=== PATIENT | male | born 1980 | race Two or more races ===

== ENCOUNTER 2024-03-02 19:00 | Inpatient (IN) | payer OTHER ==
[~2024-03-02] VITALS: Ht 182.9 cm; Wt 66.7 kg
[2024-03-02] MEDS: SODIUM CHLORIDE 0.9% 1,000 ML IV ONE (20:03)
[2024-03-02] MEDS: InsuLIN REG 1unit/0.01ml Soln (100units/ml) IV ONE (20:09)
[2024-03-02 20:41] LABS: Basophils # (auto) 0 10 ^3/uL (0-0.2); Basophils % (auto) 0.1 % (0.0-2.0); Eosinophils # (auto) 0 10 ^3/uL (0-0.8); Hemoglobin 18.9 g/dL (13.5-17.5); Lymphocytes # (auto) 0.5 10 ^3/uL (0.4-5.4); Lymphocytes % (auto) 7.4 % (10.0-50.0); Mean Corpuscular Hemoglobin 28.7 pg (28.0-32.0); Mean Corpuscular Hgb Conc. 32.4 g/dL (32.0-36.0); Mean Corpuscular Volume 88.7 fL (80.0-100.0); Monocytes # (auto) 0.6 10 ^3/uL (0-1.3); Monocytes % (auto) 9.7 % (0.0-12.0); Neutrophils # (auto) 5.4 10 ^3/uL (1.6-8.6); Neutrophils % (auto) 82.8 % (37.0-80.0); Nucleated Red Blood Cells % 0.5 %; Red Blood Cells 6.59 10^6/uL (4.5-5.90); Red Cell Distribution Width 13.4 % (11.8-14.3); White Blood Cell 6.5 10^3/uL (4.4-10.8)
[2024-03-02 20:42] LABS: Hematocrit 58.5 % (41.0-53.0)
[2024-03-02 20:50] LABS: Base Excess -18.1 mmol/L (-2.0-2.0)
[2024-03-02 21:14] LABS: Alanine Aminotransferase 16 U/L (7-40); Albumin 5.4 g/dL (3.2-4.8); Alkaline Phosphatase 109 U/L (46-116); Anion Gap 23.00001 (5-15); Aspartate Aminotransferase 16 U/L (13-40); BUN/Creatinine Ratio 12.2 (10.0-20.0); Blood Urea Nitrogen 22 mg/dL (9-23); Calcium 10.9 mg/dL (8.7-10.4); Chloride 89 mmol/L (98-107); Potassium 4.6 mmol/L (3.5-5.1); Sodium 122 mmol/L (136-145)
[2024-03-02 21:15] LABS: Bilirubin, Total 0.7 mg/dL (0.2-1.0); Total Protein 8.9 g/dL (5.7-8.2)
[2024-03-02] MEDS ORDERED: DEXTROSE (50%) 50ML SYRG IV PRN ×2 (21:15→23:15)
[2024-03-02 21:25] LABS: Urine Bacteria None Seen /hpf (None Seen)
[2024-03-02 21:26] LABS: Lactic Acid w/Reflex 2.3 mmol/L (0.4-2.0)
[2024-03-02 21:27] LABS: Carbon Dioxide < 10 mmol/L (20-30); Glucose 412 mg/dL (74-106)
[2024-03-02] MEDS: SODIUM CHLORIDE 0.9% 2,000 ML IV ONE (21:36)
[2024-03-02 21:58] LABS: Urine Blood 1+ /uL (Negative); Urine Clarity Clear (Clear); Urine Color Light-Yellow (Yellow); Urine Mucus FEW (None Seen); Urine Protein, UAD 1+ (Negative); Urine Specific Gravity 1.027 (1.001-1.035); Urine Urobilinogen Normal (Negative); Urine WBC 1 /hpf (0 - 3)
[2024-03-02 22:00] LABS: Magnesium 2.1 mg/dL (1.6-2.6)
[2024-03-02 22:01] LABS: Phosphorus 3.8 mg/dL (2.4-5.1)
[2024-03-02 22:23] VITALS: PULSE 92; RESP 20; O2SAT 95
[2024-03-02] MEDS: INSULIN LANTUS (GLARGINE) 1 /0.01ml (100units/ml) SC ONE (22:34)
[2024-03-02] MEDS: ONDANSETRON HCL 4 MG/2 ML VIAL IV ONE (22:34)
[2024-03-02] MEDS: INSULIN DRIP 100 UNIT/100ML 100 ML IV SCH (22:35)
[2024-03-02] MEDS: ACCU-CHEK COMFORT CURVE STRIP VI SCH (22:36)
[2024-03-02] MEDS: MORPHINE SULFATE INJ 2 MG/ml SYRG IV ONE (22:36)
[2024-03-02] MEDS ORDERED: ONDANSETRON HCL 4 MG/2 ML VIAL IV PRN (23:15)
[2024-03-02] MEDS ORDERED: MORPHINE SULFATE INJ 2 MG/ml SYRG IV PRN (23:15)
[2024-03-02] MEDS ORDERED: NITROGLYCERIN 0.4 MG SL TAB SL PRN (23:15)
[2024-03-03 00:22] LABS: Rapid Influenza B Negative (Negative)
[2024-03-03 00:23] LABS: Rapid Influenza A Positive (Negative)
[2024-03-03 01:14] LABS: Chloride 101 mmol/L (98-107); Potassium 3.9 mmol/L (3.5-5.1)
[2024-03-03] MEDS: OSELTAMIVIR 75 MG CAP PO ONE (01:14)
[2024-03-03 01:15] LABS: Anion Gap 15 (5-15); Carbon Dioxide 11 mmol/L (20-30)
[2024-03-03 01:16] LABS: Calcium 9.1 mg/dL (8.7-10.4)
[2024-03-03 01:20] LABS: Blood Urea Nitrogen 11 mg/dL (9-23)
[2024-03-03 01:24] LABS: Glucose 231 mg/dL (74-106); Sodium 127 mmol/L (136-145)
[2024-03-03] MEDS: INSULIN DRIP 100 UNIT/100ML 100 ML IV SCH ×2 (02:05→04:44)
[2024-03-03] MEDS: SODIUM CHLORIDE 0.9% 1,000 ML IV SCH (04:45)
[2024-03-03 04:49] LABS: Basophils # (auto) 0 10 ^3/uL (0-0.2); Basophils % (auto) 0.1 % (0.0-2.0); Eosinophils # (auto) 0 10 ^3/uL (0-0.8); Hematocrit 48.7 % (41.0-53.0); Hemoglobin 16.4 g/dL (13.5-17.5); Lymphocytes # (auto) 1.1 10 ^3/uL (0.4-5.4); Lymphocytes % (auto) 16.4 % (10.0-50.0); Mean Corpuscular Hemoglobin 29.6 pg (28.0-32.0); Mean Corpuscular Hgb Conc. 33.7 g/dL (32.0-36.0); Mean Corpuscular Volume 87.6 fL (80.0-100.0); Monocytes % (auto) 15.1 % (0.0-12.0); Neutrophils # (auto) 4.5 10 ^3/uL (1.6-8.6); Neutrophils % (auto) 68.4 % (37.0-80.0); Nucleated Red Blood Cells % 0.1 %; Red Blood Cells 5.57 10^6/uL (4.5-5.90); Red Cell Distribution Width 13.5 % (11.8-14.3); White Blood Cell 6.6 10^3/uL (4.4-10.8)
[2024-03-03 05:00] LABS: COVID19 ANTIGEN SOFIA FIA NEGATIVE (NEGATIVE)
[2024-03-03 05:07] LABS: Albumin 4.1 g/dL (3.2-4.8); Alkaline Phosphatase 73 U/L (46-116); Anion Gap 15 (5-15); Aspartate Aminotransferase < 8 U/L (13-40); BUN/Creatinine Ratio 7.6 (10.0-20.0); Bilirubin, Total 0.6 mg/dL (0.2-1.0); Blood Urea Nitrogen 10 mg/dL (9-23); Calcium 9.2 mg/dL (8.7-10.4); Carbon Dioxide 12 mmol/L (20-30); Chloride 102 mmol/L (98-107); Glucose 181 mg/dL (74-106); Potassium 3.7 mmol/L (3.5-5.1); Sodium 129 mmol/L (136-145); Total Protein 7.2 g/dL (5.7-8.2)
[2024-03-03 05:14] LABS: Alanine Aminotransferase < 9 U/L (7-40)
[2024-03-03] MEDS ORDERED: DEXTROSE (50%) 50ML SYRG IV PRN ×2 (07:15→17:15)
[2024-03-03] MEDS: InsuLIN REG 1unit/0.01ml Soln (100units/ml) SC SCH ×2 (08:00→22:05)
[2024-03-03] MEDS: ACCU-CHEK COMFORT CURVE STRIP VI SCH ×2 (08:28→22:06)
[2024-03-03 09:00] VITALS: PULSE 87; RESP 17; O2SAT 95
[2024-03-03] MEDS: HYDROcodone-ACET 5/325MG TAB PO PRN (09:20)
[2024-03-03] MEDS: INSULIN LANTUS (GLARGINE) 1 /0.01ml (100units/ml) SC SCH (10:34)
[2024-03-03 14:07] LABS: Chloride 103 mmol/L (98-107); Sodium 129 mmol/L (136-145)
[2024-03-03 14:08] LABS: Anion Gap 11 (5-15); Calcium 8.8 mg/dL (8.5-10.1); Carbon Dioxide 15 mmol/L (20-30)
[2024-03-03 14:13] LABS: BUN/Creatinine Ratio 8.6 (10.0-20.0); Blood Urea Nitrogen 10 mg/dL (9-23); Glucose 218 mg/dL (74-106)
[2024-03-03] MEDS: D5W/SOD CHLO 0.9% 1,000 ML IV SCH ×2 (14:33→17:15)
[2024-03-03 19:30] VITALS: PULSE 80; RESP 18; O2SAT 96
[2024-03-03] MEDS: guaiFENesin-DM 100/10mg/5ml SYR PO PRN (22:01)
[2024-03-03] MEDS: OSELTAMIVIR 75 MG CAP PO SCH (22:03)
[2024-03-03 23:30] VITALS: BP 102/60; PULSE 74; RESP 14; TEMP 98.4; O2SAT 96
[2024-03-03 23:42] VITALS: PULSE 74; RESP 14
[2024-03-04] VITALS (8 sets, daily range): BP systolic 99–113; BP diastolic 56–74; PULSE 56–92; RESP 14–20; TEMP 98.1–98.7; O2SAT 96–100
[2024-03-04] MEDS: InsuLIN REG 1unit/0.01ml Soln (100units/ml) SC SCH (06:21)
[2024-03-04 06:36] LABS: Basophils # (auto) 0 10 ^3/uL (0-0.2); Basophils % (auto) 0.2 % (0.0-2.0); Eosinophils # (auto) 0 10 ^3/uL (0-0.8); Eosinophils % (auto) 0.1 % (0.0-7.0); Hematocrit 42.6 % (41.0-53.0); Hemoglobin 14.3 g/dL (13.5-17.5); Lymphocytes # (auto) 1.2 10 ^3/uL (0.4-5.4); Lymphocytes % (auto) 23.8 % (10.0-50.0); Mean Corpuscular Hemoglobin 29.3 pg (28.0-32.0); Mean Corpuscular Hgb Conc. 33.5 g/dL (32.0-36.0); Mean Corpuscular Volume 87.3 fL (80.0-100.0); Monocytes # (auto) 0.7 10 ^3/uL (0-1.3); Neutrophils % (auto) 60.9 % (37.0-80.0); Red Blood Cells 4.88 10^6/uL (4.5-5.90); Red Cell Distribution Width 13.2 % (11.8-14.3); White Blood Cell 4.9 10^3/uL (4.4-10.8)
[2024-03-04 06:47] LABS: Alkaline Phosphatase 62 U/L (46-116); Anion Gap 8 (5-15); BUN/Creatinine Ratio 6.5 (10.0-20.0); Blood Urea Nitrogen 7 mg/dL (9-23); Calcium 9.1 mg/dL (8.7-10.4); Carbon Dioxide 23 mmol/L (20-30); Chloride 102 mmol/L (98-107); Glucose 147 mg/dL (74-106); Magnesium 1.7 mg/dL (1.6-2.6); Potassium 3.1 mmol/L (3.5-5.1); Sodium 133 mmol/L (136-145)
[2024-03-04 06:48] LABS: Albumin 3.5 g/dL (3.2-4.8)
[2024-03-04 06:49] LABS: Bilirubin, Total 0.7 mg/dL (0.2-1.0); Total Protein 6.1 g/dL (5.7-8.2)
[2024-03-04 06:54] LABS: Alanine Aminotransferase < 9 U/L (7-40)
[2024-03-04 07:09] LABS: Aspartate Aminotransferase 9 U/L (13-40)
[2024-03-04] MEDS ORDERED: INSLANTI SC (10:50)
[2024-03-04] MEDS ORDERED: BLOO1KIT60 XX (10:50)
[2024-03-04] MEDS ORDERED: LISI-275 PO (10:51)
[2024-03-04] MEDS: POTASSIUM CHL 20 Meq TABLET PO ONE (11:27)
[2024-03-05 05:00] VITALS: BP 108/62; PULSE 76; RESP 17; TEMP 98.2; O2SAT 99
[2024-03-05 06:23] LABS: Anion Gap 4 (5-15); Carbon Dioxide 27 mmol/L (20-30); Chloride 103 mmol/L (98-107); Potassium 3.2 mmol/L (3.5-5.1); Sodium 134 mmol/L (136-145)
[2024-03-05 06:29] LABS: Blood Urea Nitrogen 14 mg/dL (9-23); Glucose 154 mg/dL (74-106)
[2024-03-05 06:30] LABS: Magnesium 1.6 mg/dL (1.6-2.6)
[2024-03-05 08:00] VITALS: PULSE 71; RESP 18; O2SAT 99
[2024-03-05 08:25] VITALS: BP 104/74; PULSE 66; RESP 20; TEMP 98.4; O2SAT 99
[2024-03-05] MEDS ORDERED: LISI-275 PO (10:30)
[2024-03-05] MEDS ORDERED: BLOO1KIT60 XX (10:30)
[2024-03-05] MEDS ORDERED: INSLANTI SC (10:30)
[2024-03-05] MEDS ORDERED: TAMIFLU PO (10:33)
[2024-03-05] MEDS: POTASSIUM CHL 20 Meq TABLET PO ONE (11:57)
[2024-03-05] MEDS: MAGNESIUM OXIDE 400 MG TAB PO ONE (11:57)
[2024-03-05 12:19] VITALS: BP 104/74; PULSE 66; RESP 18; TEMP 98.4; O2SAT 99
[2024-03-05 12:47] VITALS: BP 109/71; PULSE 100; RESP 20; TEMP 98.6; O2SAT 99
[2024-03-05] MEDS ORDERED: BLOOMIS91 XX (14:33)
[2024-03-07 09:29] LABS: Hepatitis B Surface Antigen Negative (Negative)
[2024-03-07 09:50] LABS: Hepatitis C Antibody Negative (Negative)
== END 2024-03-05 15:24 | disposition home or self-care (01) | DRG 638 ==
LOC: ER 19:15 → TELE 23:06 → TELE-CENTR 03-03 22:40
PROVIDERS: ADMIT Nurse Practitioner; ATTEND Internal Medicine Geriatric Medicine
DX: E10.10 Type 1 diabetes mellitus with ketoacidosis without coma (principal); E87.1 Hypo-osmolality and hyponatremia; N17.9 Acute kidney failure, unspecified; J10.1 Influenza due to other identified influenza virus with other respiratory manifestations; E87.6 Hypokalemia; E83.42 Hypomagnesemia; Z20.822 Contact with and (suspected) exposure to COVID-19; E86.0 Dehydration; Z83.3 Family history of diabetes mellitus; Z79.4 Long term (current) use of insulin; Z79.899 Other long term (current) drug therapy
CPT/HCPCS: 36415; 36600; 71045; 74176; 80048; 80053; 81001; 82010; 82805; 82962; 83036; 83605; 83735; 83880; 83930; 84100; 84484; 85025; 86803; 87040; 87340; 87426; 87804; 93005; 96361; 96365; 96366; 96372; 96375; 99291; G0378; J1815; J2405; J7042

== ENCOUNTER 2024-05-23 11:27 | Emergency (ER) | payer OTHER ==
[~2024-05-23] VITALS: Ht 180.3 cm; Wt 68.3 kg
[~2024-05-23 11:27] MED LIST: BLOO1KIT60 XX; BLOOMIS91 XX; INSLANTI SC; LISI-275 PO; TAMIFLU PO
[2024-05-23 12:50] VITALS: BP 143/94; PULSE 81; RESP 18; TEMP 99.4; O2SAT 100
[2024-05-23] MEDS ORDERED: GABA300T4 PO (12:55)
[2024-05-23] MEDS ORDERED: METH-1181 PO (12:55)
== END 2024-05-23 13:00 | disposition home or self-care (01) ==
LOC: ER 11:27
DX: R20.2 Paresthesia of skin (principal); Z76.0 Encounter for issue of repeat prescription
CPT/HCPCS: 82962